=== PATIENT | female | born 1995 | race Caucasian/White ===

== ENCOUNTER 2018-04-01 00:04 | Emergency (ER) | payer BC ==
[~2018-04-01] VITALS: Ht 167.6 cm; Wt 54.5 kg
[2018-04-01 00:11] VITALS: TEMP 98
[2018-04-01 02:25] VITALS: BP 110/70; PULSE 87
== END 2018-04-01 02:26 | disposition home or self-care (01) ==
LOC: COL.ER 00:04 → EDBD 00:05 → COL.ER 00:05
DX: F10.129 Alcohol abuse with intoxication, unspecified (principal)
CPT/HCPCS: J2405